=== PATIENT | male | born 1990 | race American Indian/Alaskan Native ===

== ENCOUNTER 2019-03-20 11:23 | Emergency (ER) | payer SELFPAY ==
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
[2019-03-20 12:18] LABS: Basophils % (Auto) 0.9 % (0.0-1.8); Eosinophils # (Auto) 0.2 K/mm3 (0.0-0.4); Eosinophils % (Auto) 3.7 % (0.0-4.3); Hemoglobin 14.7 gm/dl (11.8-15.2); Lymphocytes # (Auto) 2.6 K/mm3 (1.2-5.4); Lymphocytes % (Auto) 52.1 % (13.4-35.0); Mean Corpuscular HGB Conc 35 % (32-34); Mean Corpuscular Volume 84 fl (84-94); Monocytes # (Auto) 0.4 K/mm3 (0.0-0.8); Monocytes % (Auto) 8.4 % (0.0-7.3); Platelet Count 266 K/mm3 (140-440); Red Cell Distribution Width 13.7 % (13.2-15.2)
--- NOTE | 2019-03-20 12:18 | XRay Report ---
CHEST 1 VIEW INDICATION: sob and chest pain. COMPARISON: None FINDINGS: Support devices: None. Heart: Within normal limits. Lungs/Pleura: No acute air space or interstitial disease. Additional findings: None. IMPRESSION: No acute findings. Signer Name: Kedar Abreu Jr, MD Signed: 03/20/2019 12:14 PM Workstation Name: [id number]
[2019-03-20 12:32] LABS: Alanine Aminotransferase 19 units/L (7-56); Albumin 5.2 g/dL (3.9-5); BUN/Creatinine Ratio 18; Blood Urea Nitrogen 16 mg/dL (9-20); Calcium 9.7 mg/dL (8.4-10.2); Hemolysis Index 56
[2019-03-20 15:49] VITALS: BP 121/76
== END 2019-03-20 15:49 | disposition left against medical advice (07) ==
LOC: ED 11:23
DX: R51 Headache (principal); R55 Syncope and collapse; J45.909 Unspecified asthma, uncomplicated; F17.200 Nicotine dependence, unspecified, uncomplicated; Z77.29 Contact with and (suspected) exposure to other hazardous substances
CPT/HCPCS: 36415; 71045; 80053; 85025; 93005; 93010